=== PATIENT | female | born 1950 | race African-American/Black ===

== ENCOUNTER 2017-09-12 03:18 | Emergency (ER) | payer MEDICARE, MEDICAID ==
[2017-09-12 03:54] LABS: #Lymphocytes 0.9 thou/uL (1.20-3.40); #Monocytes 0.6 thou/uL (0.11-0.59); #Neutrophils 7.3 thou/uL (1.40-6.50); %Basophils 0.2 % (0.0-1.0); %Eosinophils 0.1 % (0.0-10.0); %Lymphocytes 10.2 % (21.0-51.0); %Neutrophils 82.6 % (42.0-75.0); Hemoglobin 11.9 g/dL (12.0-16.0); Mean Corpuscular Hemoglobin 31.1 pg (27.0-31.0); Mean Corpuscular Volume 91.4 fl (81.0-99.0); Mean Platelet Volume 7.4 fL (7.4-10.4); Platelet Count 261 thou/uL (130-400); RBC Distribution Width 12.7 % (11.5-14.5); Red Blood Cell (RBC) Count 3.83 mill/uL (4.20-5.40); White Blood Cell (WBC) Count 8.9 thou/uL (4.8-10.8)
[2017-09-12 04:16] LABS: ALT (SGPT) 17 U/L (8-55); AST (SGOT) 16 U/L (5-34); Albumin 4.3 g/dL (3.4-4.8); Alkaline Phosphatase 115 U/L (40-150); Anion Gap 14 mmol/L (10-20); BUN (Urea Nitrogen) 11 mg/dL (9.8-20.1); Bilirubin, Total 0.5 mg/dL (0.2-1.2); Calc. Creatinine Clearance 0 mL/min (70-130); Calcium 9.3 mg/dL (7.8-10.44); Carbon Dioxide 24 mmol/L (23-31); Chloride 102 mmol/L (98-107); Estimated GFR-MDRD 82; Globulin 3.2 g/dL (2.4-3.5); Glucose 159 mg/dL (80-115); Lipase 6 U/L (8-78); Potassium 3.5 mmol/L (3.5-5.1); Protein, Total 7.5 g/dL (6.0-8.3); Sodium 136 mmol/L (136-145)
--- NOTE | 2017-09-12 09:15 | RAD ---
CHEST 1 VIEW AND ABDOMEN 2 VIEWS: Date: 09/12/17 HISTORY: Abdominal pain. FINDINGS/IMPRESSION: The heart size is normal. The lungs are expanded without focal areas of consolidation, pneumothorax, or pleural effusions. There are degenerative changes in the spine. No free air or differential fluid levels are identified. The bowel gas pattern is unremarkable. There is fecal material in the colon. POS: [facility]
== END 2017-09-12 07:25 | disposition home or self-care (01) ==
LOC: ERS 03:18
DX: K59.00 Constipation, unspecified (principal); R10.9 Unspecified abdominal pain; E11.9 Type 2 diabetes mellitus without complications; E03.9 Hypothyroidism, unspecified; E78.5 Hyperlipidemia, unspecified; I10 Essential (primary) hypertension; F32.9 Major depressive disorder, single episode, unspecified; F20.9 Schizophrenia, unspecified; G47.00 Insomnia, unspecified; Z79.84 Long term (current) use of oral hypoglycemic drugs; Z79.899 Other long term (current) drug therapy
CPT/HCPCS: 36415; 74022; 80053; 82150; 83690; 85025

== ENCOUNTER 2017-09-13 06:42 | Inpatient (IN) | payer MEDICARE, MEDICAID ==
[2017-09-13] MEDS ORDERED: Iopamidol 370 76% 50 ML VIAL FS ONE (07:35)
[2017-09-13] MEDS ORDERED: ISOVUE-370 76%-LOCM 1 ML ONE (07:35)
[2017-09-13] MEDS ORDERED: Ondansetron PF 4 MG/2 ML Vial ONE (07:37)
[2017-09-13 08:06] LABS: Hemoglobin 12.3 g/dL (12.0-16.0); Mean Corpuscular HGB CONC 33.6 g/dL (32.0-36.0); Mean Corpuscular Hemoglobin 30.9 pg (27.0-31.0); Mean Corpuscular Volume 92.1 fl (81.0-99.0); Mean Platelet Volume 7.8 fL (7.4-10.4); Platelet Count 231 thou/uL (130-400); RBC Distribution Width 12.8 % (11.5-14.5); Red Blood Cell (RBC) Count 3.98 mill/uL (4.20-5.40); White Blood Cell (WBC) Count 14.9 thou/uL (4.8-10.8)
[2017-09-13 08:12] LABS: ALT (SGPT) 26 U/L (8-55); AST (SGOT) 20 U/L (5-34); Alkaline Phosphatase 111 U/L (40-150); Anion Gap 15 mmol/L (10-20); BUN (Urea Nitrogen) 16 mg/dL (9.8-20.1); Bilirubin, Total 0.8 mg/dL (0.2-1.2); Calc. Creatinine Clearance 0 mL/min (70-130); Calcium 9.3 mg/dL (7.8-10.44); Carbon Dioxide 23 mmol/L (23-31); Chloride 99 mmol/L (98-107); Estimated GFR-MDRD 55; Globulin 3.1 g/dL (2.4-3.5); Glucose 143 mg/dL (80-115); Lipase Less than 4 U/L (8-78); Potassium 3.7 mmol/L (3.5-5.1); Protein, Total 7.1 g/dL (6.0-8.3); Sodium 133 mmol/L (136-145)
[2017-09-13 08:32] LABS: Band 15 % (5-11); Lymphocytes 9 % (21-51); MDiff Complete? YES; Monocytes 7 % (0-10); Neutrophil 69 % (42-75); PLT Morphology Comment Appears Adequate; RBC Morphology Normal
--- NOTE | 2017-09-13 10:20 | CT ---
CT OF ABDOMEN AND PELVIS: Date: 09/13/17 COMPARISON: 04/17/15. HISTORY: Abdominal pain with diffuse cramping. TECHNIQUE: Serial axial CT imaging obtained at 5 mm intervals from lung bases through pubic symphysis with IV an d oral contrast. Coronal reformatted imaging obtained. FINDINGS: The imaged lung bases are unremarkable. No free intraperitoneal air is noted. There is small volume nonspecific free fluid in the perihepatic region. The liver, gallbladder, and spleen appear grossly unremarkable. Adrenal glands are mildly thickening in a symmetric fashion bilaterally, unchanged since 2014. Both k idneys demonstrate a pelvic location and may demonstrate a thin connection along their superior luis n, stable. There is small volume free fluid in the right lower quadrant inferiorly. There is no evidence for bowel obstruction. There is significant inflammatory fat stranding in the right lower quadrant inferior to and posterior to the cecum. The epicenter of this area of inflammatory change is surrounding an inflamed, thick-wa lled, and irregular appendix, which contains multiple appendicoliths. The mid and distal aspect of th e appendix measures up to 1.2 cm in transverse dimension. On axial image 69 and coronal image 58, the re is a focus of gas near the tip of the appendix which may be extraluminal in the basis of microperf oration. There is no evidence for a drainable abscess at this point. There is a small hiatal hernia. There is atherosclerotic calcification of the infrarenal abdominal aorta and the arterial structures of the pelvis. No lymphadenopathy identified within the retroperitoneum, mesentery, or pelvis. There is a fat-containing umbilical hernia. No acute osseous abnormality is noted. There is multilevel dege nerative change within the imaged spine, primarily the lower lumbar spine. IMPRESSION: Thick-walled and irregular appendix containing numerous appendicoliths. There is also prominent right lower quadrant inflammatory change. Findings are concerning for acute appendicitis. Focus of gas yamile r the tip of the appendix and the degree of right lower quadrant inflammatory change is suspicious fo r early changes of appendiceal perforation. There is no evidence for bowel obstruction or abscess. Sm all volume free fluid noted in the pelvis, right lower quadrant, and right perihepatic region. Dr. Burns made aware at 0915 hours on 09/13/17. CODE CR. POS: [facility]
[2017-09-13] MEDS ORDERED: Piperacillin/Tazobactam 3.375 GM in Sodium Chloride 0.9% 100 ML IVPB SCH (10:30)
[2017-09-13] MEDS ORDERED: Dextrose 5% in Water 1,000 ML IV PRN (11:24)
[2017-09-13] MEDS ORDERED: Lorazepam 2 MG/ML VIAL SLOW IVP PRN (11:24)
[2017-09-13] MEDS ORDERED: hydrALAZINE 20 MG/ML VIAL SLOW IVP PRN (11:24)
[2017-09-13] MEDS ORDERED: Morphine 4 MG/ML Carpuject IVP PRN (11:24)
[2017-09-13] MEDS ORDERED: Dextrose 50% Abboject 50 ML SYRINGE SLOW IVP PRN (11:24)
[2017-09-13] MEDS ORDERED: Ondansetron ODT 4 MG TAB PO PRN (11:24)
[2017-09-13] MEDS ORDERED: Insulin Regular 300 UNITS/3 ML VIAL SC PRN (11:24)
[2017-09-13] MEDS ORDERED: Ondansetron PF 4 MG/2 ML Vial IVP PRN (11:24)
[2017-09-13] MEDS ORDERED: HumaLOG 300 UNITS/3 ML VIAL SC PRN (11:24)
[2017-09-13] MEDS ORDERED: Ketorolac Tromethamine 30 MG/ML VIAL IVP PRN (11:29)
[2017-09-13] MEDS ORDERED: traMADol HCl 50 MG TAB PO PRN (11:29)
[2017-09-13] MEDS ORDERED: Ibuprofen 600 MG TAB PO PRN (11:30)
[2017-09-13] MEDS ORDERED: Fioricet 325/50/40 mg Tablet PO PRN (11:31)
[2017-09-13] MEDS ORDERED: CALAMINE TOP PRN (11:31)
[2017-09-13] MEDS ORDERED: PRAMOXINE HCL TOP PRN (11:31)
--- NOTE | 2017-09-13 11:55 | HP ---
HISTORY OF PRESENT ILLNESS: Alyssa Norris is a 67-year-old black female who presented in the [facility] room on 09/12/2017, seen by Dr. Tom, evaluated with abdominal x-ray series demonstrating wha t patient reports is constipation. Personal review reveals that there are some stool, but not abunda nt. Her pain worsened, she reported back to the emergency room. CAT scan of abdomen and pelvis reve als changes consistent with appendicitis with inflammatory changes. She has numerous appendicolith. She had arteriosclerosis of the infrarenal abdominal aorta and arterial structure of the pelvis and bony degenerative changes otherwise. The patient had a left PICC line placed in 2014 and a nuclear c ardiac stress test in 03/2015, EF 52% and normal myocardial perfusion without ischemia. In 03/2015, Dr. Moore performed laparoscopic hand-assisted adhesiolysis for bowel obstruction. ALLERGIES: None. TOBACCO: None. ALCOHOL: None. MEDICATIONS: Lorazepam 2 mg as needed, naproxen 500 mg daily, metformin 500 mg a day, Latuda 80 mg a day, Linzess 145 mcg 72 mcg once a day a.m., dorzolamide ophthalmic drops, valacyclovir 500 mg a day , levothyroxine 100 mcg a day, amlodipine 10 mg a day, simvastatin 20 mg a day, bupropion 150 mg a da y, Travatan eyedrops daily, vitamins daily. PAST SURGICAL HISTORY: Total abdominal hysterectomy. Dr. Moore performed adhesiolysis hand-assist ed laparoscopic 2014. PAST MEDICAL HISTORY: Diabetes mellitus type 2, obesity, hypertension, and elevated cholesterol. SOCIAL HISTORY: The patient lives alone. She is . She lives in [place]. She does not have an y family support. Her family lives in [place] and the family is not getting along and she has nobody t o take her home today. PHYSICAL EXAMINATION: VITAL SIGNS: 99 kilograms, 130/74, 85, 18, 98.4 degrees. HEENT: Unremarkable. LUNGS: Clear to auscultation. CARDIAC: Regular rate and rhythm without murmur or gallop. ABDOMEN: Soft, tenderness in right lower quadrant with guarding and rebound. EXTREMITIES: Unremarkable. Ankle edema. No axillary, neck or groin lymphadenopathy. NEUROLOGIC: Neurologically intact. No focal deficits. LABORATORY DATA: Sodium 133, potassium 3.7, creatinine 1.2, GFR 55, BUN 16. Liver function tests no rmal. White count 14, hemoglobin 12. ASSESSMENT AND PLAN: 1. Acute appendicitis. Recommend laparoscopic video appendectomy. Risk of infection, bleeding, and re-operation explained, she consents. 2. Diabetes mellitus. 3. Hypertension. 4. Elevated cholesterol.
[2017-09-13] MEDS ORDERED: Ondansetron HCl/PF 4 MG/2 ML Vial IVP PRN (12:00)
[2017-09-13] MEDS ORDERED: Promethazine HCl 25 MG/ML VIAL SLOW IVP PRN (12:00)
[2017-09-13] MEDS ORDERED: Promethazine HCl 25 MG/ML VIAL IM PRN (12:00)
[2017-09-13] MEDS ORDERED: Lorazepam 1 MG TAB PO PRN ×2 (12:06→22:15)
--- NOTE | 2017-09-13 12:58 | OP ---
DATE OF PROCEDURE: 09/13/2017 PREOPERATIVE DIAGNOSES: Ruptured appendicitis and purulent peritonitis. POSTOPERATIVE DIAGNOSES: Ruptured appendicitis and purulent peritonitis. PROCEDURES: Laparoscopic video appendectomy, abdominal washout, #19 Gold FESTUS drain, laparoscopic vide o appendectomy. Appendix removed in an Endobag and submitted to pathology. FINDINGS: Advanced appendicitis with purulent fluid in the pelvis in the right gutter. SURGEON: Dr. Hieu Raymundo ANESTHESIA: General. Local 0.5% Marcaine with epinephrine, 30 mL. DESCRIPTION OF PROCEDURE: Patient taken to the operating room where under general anesthesia, Gil catheter was placed at the beginning of the procedure and removed at the end. Abdomen was prepared w ith ChloraPrep and draped in routine fashion. Local anesthetic infiltrated into skin and subcutaneou s tissue about each port site. Infraumbilical incision made and pneumoperitoneum to 15 mmHg obtained with the Veress needle, replacing it with a 5 port and video laparoscope inserted. Right subcostal incision made and a 5 port placed. There was purulent peritonitis in the right gutter and pelvis. T here were inflammatory purulent adhesions between the lower viscera and the abdominal wall, this was taken down with blunt dissection and suprapubic incision made and a 12 port placed. Appendix was dis sected free from its purulent attachments and mesenteric attachments. Mesentery divided with the Lig aSure. Stump of the appendix was carefully dissected free to the cecal stump which dividing the blue load CARLOS stapler. Appendix placed in Endobag and removed and submitted to pathology. Area irrigate d. Irrigant evacuated. Good hemostasis noted. Suprapubic fascia approximated with 0 Vicryl GraNee needle. Approximately 3 liters of saline solution used to irrigate the pelvis in the right gutter, a bdominal cavity. Irrigant evacuated. A #19 Gold FESTUS drain brought out placed into the abdominal cavi ty extending the right subcostal port site and drain placed in the right gutter into the pelvis. Abd ominal cavity irrigated and irrigant evacuated. Suprapubic fascia approximated with 0 Vicryl. All s kin incisions approximated with interrupted subdermal 4-0 Monocryl and drain secured with 3-0 nylon s uture. Sterile dressings applied.
[2017-09-13] MEDS: Sodium Chloride 0.9% 1,000 ML IV SCH ×2 (13:30→20:28)
[2017-09-13 14:42] VITALS: BMI 36.6
[2017-09-13] MEDS ORDERED: PROPOFOL 200 MG/20 ML VIAL ONE (15:52)
[2017-09-13] MEDS ORDERED: Succinylcholine Chloride 20 MG/ML 10 ml SYRINGE FS ONE (15:52)
[2017-09-13] MEDS ORDERED: Lidocaine 1% PF 5 ML VIAL ONE (15:52)
[2017-09-13] MEDS ORDERED: Glycopyrrolate 0.2 MG/ML 5 ML SYRINGE ONE (15:52)
[2017-09-13] MEDS ORDERED: FLU VACC TS2017-18 (>65YR) 0.5 ML SYRINGE IM ONE (17:00)
[2017-09-13] MEDS: Gabapentin 300 MG CAP PO SCH ×2 (17:51→20:26)
[2017-09-13] MEDS: Piperacillin/Tazobactam 4.5 GM in Sodium Chloride 0.9% 100 ML IVPB SCH ×2 (17:51→23:55)
[2017-09-13] MEDS ORDERED: Prevnar 13-Val Conj/PF 0.5 ML SYRINGE IM ONE (18:30)
[2017-09-13] MEDS: Latanoprost 0.005% Ophth Soln 2.5 ml Bottle EA EYE SCH (20:25)
[2017-09-13] MEDS: Simvastatin 20 MG TAB PO SCH (20:26)
[2017-09-13] MEDS: Enoxaparin Sodium 40 MG/0.4 ML SYRINGE SC SCH (20:28)
[2017-09-13] MEDS: Famotidine 20 MG TAB PO SCH (20:29)
[2017-09-13] MEDS: Famotidine/PF 20 mg/2ml Vial SLOW IVP SCH (20:29)
[2017-09-13] MEDS ORDERED: Triamcinolone 0.1% Dental Paste 5 GM TUBE TOP SCH (21:00)
[2017-09-13] MEDS ORDERED: Polyethylene Glycol 3350 17 GM Packet PO SCH (21:00)
[2017-09-13] MEDS ORDERED: ZIPRASIDONE HCL PO SCH (21:00)
[2017-09-13] MEDS ORDERED: Doxepin HCl 25 MG CAP PO SCH (21:00)
[2017-09-13] MEDS ORDERED: POLYETHYLENE GLYCOL 17 GM PO SCH (21:00)
[2017-09-13] MEDS ORDERED: TOPIRAMATE 200 MG PO SCH (21:00)
[2017-09-13] MEDS ORDERED: levETIRAcetam 500 mg/5 ml Oral Solution PO SCH (21:00)
[2017-09-13] MEDS ORDERED: traZODone HCl 50 MG TAB PO PRN (21:00)
[2017-09-13] MEDS ORDERED: SUMAtriptan Succinate 50 MG TAB PO PRN (23:16)
[2017-09-14] MEDS: traZODone HCl 50 MG TAB PO PRN ×2 (00:01→20:15)
[2017-09-14] MEDS: Acetaminophen 500 MG TAB PO PRN ×2 (00:01→20:43)
[2017-09-14] MEDS: Sodium Chloride 0.9% 1,000 ML IV SCH ×2 (02:11→14:50)
[2017-09-14] MEDS: Levothyroxine Sodium 100 MCG TAB PO SCH (05:09)
[2017-09-14] MEDS: Piperacillin/Tazobactam 4.5 GM in Sodium Chloride 0.9% 100 ML IVPB SCH ×3 (05:09→18:13)
[2017-09-14 05:53] LABS: #Lymphocytes 0.9 thou/uL (1.20-3.40); #Monocytes 0.5 thou/uL (0.11-0.59); #Neutrophils 7.1 thou/uL (1.40-6.50); %Basophils 0.1 % (0.0-1.0); %Eosinophils 0.1 % (0.0-10.0); %Lymphocytes 10.8 % (21.0-51.0); %Monocytes 6.1 % (0.0-10.0); %Neutrophils 82.7 % (42.0-75.0); Hemoglobin 10.7 g/dL (12.0-16.0); Mean Corpuscular HGB CONC 32.7 g/dL (32.0-36.0); Mean Corpuscular Hemoglobin 30.3 pg (27.0-31.0); Mean Corpuscular Volume 92.6 fl (81.0-99.0); Mean Platelet Volume 7.7 fL (7.4-10.4); Platelet Count 198 thou/uL (130-400); RBC Distribution Width 12.8 % (11.5-14.5); Red Blood Cell (RBC) Count 3.52 mill/uL (4.20-5.40); White Blood Cell (WBC) Count 8.6 thou/uL (4.8-10.8)
[2017-09-14 06:05] LABS: Anion Gap 10 mmol/L (10-20); BUN (Urea Nitrogen) 14 mg/dL (9.8-20.1); Calc. Creatinine Clearance 120 mL/min (70-130); Calcium 8.2 mg/dL (7.8-10.44); Carbon Dioxide 22 mmol/L (23-31); Chloride 106 mmol/L (98-107); Estimated GFR-MDRD 78; Glucose 170 mg/dL (80-115); Potassium 3.2 mmol/L (3.5-5.1); Sodium 135 mmol/L (136-145)
[2017-09-14] MEDS ORDERED: LINACLOTIDE (LINZESS) 145 MCG PO SCH (07:30)
[2017-09-14] MEDS: metFORMIN 500 MG TAB PO SCH (08:13)
[2017-09-14] MEDS: valACYclovir 500 MG TAB PO SCH (08:13)
[2017-09-14] MEDS: Bupropion 150 MG XL TAB PO SCH (08:13)
[2017-09-14] MEDS: Fish Oil 1,000 MG CAP PO SCH (08:13)
[2017-09-14] MEDS: Ferrous Sulfate 325 MG TAB PO SCH (08:13)
[2017-09-14] MEDS: Naproxen 500 MG TAB PO SCH (08:14)
[2017-09-14] MEDS: Loratadine 10 MG TAB PO SCH (08:14)
[2017-09-14] MEDS: Amlodipine 10 MG TAB PO SCH (08:14)
[2017-09-14] MEDS: Multivit, Therapeutic 1 TAB PO SCH (08:14)
[2017-09-14] MEDS: traMADol HCl 50 MG TAB PO PRN ×2 (08:15→15:59)
[2017-09-14] MEDS: Lurasidone HCl 40 MG TABLET PO SCH (08:22)
[2017-09-14] MEDS: Famotidine 20 MG TAB PO SCH ×2 (08:51→20:08)
[2017-09-14] MEDS: DorzolamidE/Timolol 2%/0.5% Ophth Soln 10 ml Bottle EA EYE SCH (08:51)
[2017-09-14] MEDS ORDERED: Polyethylene Glycol 3350 17 GM Packet PO SCH (09:00)
[2017-09-14] MEDS ORDERED: Fluticasone Propionate Nasal Spray 16 gm Bottle NASAL PRN (09:00)
[2017-09-14] MEDS: Famotidine/PF 20 mg/2ml Vial SLOW IVP SCH (09:21)
--- NOTE | 2017-09-14 18:30 | PRG ---
DATE OF SERVICE: 09/14/2017 SUBJECTIVE: Alyssa Norris is doing well, one day status post laparoscopic appendectomy, abdominal wash out for ruptured appendicitis with peritonitis. Drain was in place and draining slightly blood y serous fluid. OBJECTIVE: VITAL SIGNS: Temperature 98.2 degrees, heart rate 88, blood pressure 123/72. LUNGS: Clear to auscultation. CARDIAC: Regular rate and rhythm without murmur or gallop. ABDOMEN: Soft, obese, and nontender. LABORATORY DATA: This morning, her white count is 8.6, down to 14 yesterday. Basic metabolic profil e was normal. ASSESSMENT AND PLAN: Doing well. Expect to be able to send her home on oral antibiotics tomorrow an d remove her FESTUS drain prior to discharge. She will follow up in my office in 2-3 weeks. She will co ntinue on oral antibiotics as an outpatient for 5 days.
[2017-09-14] MEDS: Enoxaparin Sodium 40 MG/0.4 ML SYRINGE SC SCH (20:07)
[2017-09-14] MEDS: Simvastatin 20 MG TAB PO SCH (20:08)
[2017-09-14] MEDS: Latanoprost 0.005% Ophth Soln 2.5 ml Bottle EA EYE SCH (20:09)
[2017-09-14] MEDS: HYDROcodone/Acetaminophen 10/325 mg Tablet PO PRN (20:43)
[2017-09-15] MEDS: Piperacillin/Tazobactam 4.5 GM in Sodium Chloride 0.9% 100 ML IVPB SCH ×2 (00:20→05:12)
[2017-09-15] MEDS: Levothyroxine Sodium 100 MCG TAB PO SCH (05:13)
[2017-09-15] MEDS: Naproxen 500 MG TAB PO SCH (08:29)
[2017-09-15] MEDS: metFORMIN 500 MG TAB PO SCH (08:29)
[2017-09-15] MEDS: Ferrous Sulfate 325 MG TAB PO SCH (08:29)
[2017-09-15] MEDS ORDERED: Amoxicillin/Potassium Clav 500 MG TAB PO SCH (09:00)
--- NOTE | 2017-09-15 09:03 | PRG ---
DATE OF SERVICE: 09/15/2016 Alyssa Norris is doing well today. She is without fever. PHYSICAL EXAMINATION: VITAL SIGNS: Temperature 98 degrees, 81, 18, 127/79. She is tolerating her diet without nausea or v omiting. LUNGS: Clear to auscultation. CARDIAC: Regular rate and rhythm without murmur or gallop. ABDOMEN: Soft, nontender. LABORATORY: White count yesterday 8.6, hemoglobin 10.7. Basic metabolic profile normal. The patient has Vidor 10 at home. She is being discharged home with Augmentin 500 mg p.o. b.i.d. for 5 days. Drain will be removed, it is serosanguineous. LUNGS: Clear to auscultation. CARDIAC: Regular rhythm without murmur or gallop. ABDOMEN: Soft, nontender. She will take Tylenol and ibuprofen [id number] for pain. She has Vidor 10 at home she will use for breakthrough pain. She takes this for her arthritis.
[2017-09-15] MEDS: Amlodipine 10 MG TAB PO SCH (09:52)
[2017-09-15] MEDS: Bupropion 150 MG XL TAB PO SCH (09:53)
[2017-09-15] MEDS: Multivit, Therapeutic 1 TAB PO SCH (09:54)
[2017-09-15] MEDS: Fish Oil 1,000 MG CAP PO SCH (09:54)
[2017-09-15] MEDS: Lurasidone HCl 40 MG TABLET PO SCH (09:54)
[2017-09-15] MEDS: Loratadine 10 MG TAB PO SCH (09:55)
[2017-09-15] MEDS: valACYclovir 500 MG TAB PO SCH (09:56)
[2017-09-15] MEDS: HYDROcodone/Acetaminophen 10/325 mg Tablet PO PRN (10:11)
[2017-09-15] MEDS: DorzolamidE/Timolol 2%/0.5% Ophth Soln 10 ml Bottle EA EYE SCH (10:39)
--- NOTE | 2017-09-15 10:53 | DIS ---
DATE OF ADMISSION: 09/13/2017 DATE OF DISCHARGE: 09/15/2017 DISCHARGE DIAGNOSES: 1. Perforated appendicitis with peritonitis. 2. Obesity. 3. Chronic pain, on [place] at home for that. 4. Morbid obesity. 5. Diabetes mellitus type 2. 6. Metabolic syndrome. 7. Hypertension. 8. Anxiety. DISCHARGE MEDICATIONS: She will resume her home medications. See admission list and sent home with Augmentin 500 b.i.d. for 5 days, [id number] ibuprofen and Tylenol for breakthrough pain. She h as [place] at home. FOLLOWUP: Follow up in my office in 2-3 weeks. HISTORY: A 67-year-old morbidly obese female who presents to the emergency room with right lower charissa drant abdominal pain, evaluated by Dr. Tom. Plain x-rays suggested constipation. She was sent ho me with instructions to take laxatives. The next day, her pain worsened, she presented back to the e mergency room. CAT scan verified appendicitis. She received intravenous antibiotics and fluids, und erwent laparoscopic video appendectomy, abdominal washout of purulent peritonitis and a drain placeme nt. Postoperatively, she convalesced and tolerated her diet and is being discharged home with the ab ove regimen. Diet and activity as tolerated. No restrictions. Follow up in my office in [facility] 2-3 weeks.
[2017-09-15 13:00] VITALS: BP 142/92; TEMP 97.6
--- NOTE | 2017-09-19 14:24 | EKG ---
Test Reason : Blood Pressure : / mmHG Vent. Rate : 097 BPM Atrial Rate : 097 BPM P-R Int : 178 ms QRS Dur : 074 ms QT Int : 354 ms P-R-T Axes : 072 054 067 degrees QTc Int : 449 ms Normal sinus rhythm Possible Left atrial enlargement Borderline ECG Confirmed by SRIDHAR SANDOVAL ([id number]), medical editor KELLY DE LA ROSA ([id number]) on 09/19/2017 2:24:30 PM Referred By: Confirmed By:SRIDHAR SANDOVAL
== END 2017-09-15 14:10 | disposition home or self-care (01) | DRG 340 ==
LOC: ERS 06:42 → SURG A 07:25 → ERS 07:25 → SURG A 13:39
PROVIDERS: ADMIT Specialist; ATTEND Specialist
PROC: 0DTJ4ZZ Resection of Appendix, Percutaneous Endoscopic Approach (ICD-10-PCS; principal; 2017-09-13)
DX: K35.2 Acute appendicitis with generalized peritonitis (principal); E66.01 Morbid (severe) obesity due to excess calories; E88.81 Metabolic syndrome and other insulin resistance; E11.9 Type 2 diabetes mellitus without complications; I10 Essential (primary) hypertension; E78.00 Pure hypercholesterolemia, unspecified; Z68.36 Body mass index [BMI] 36.0-36.9, adult; G89.29 Other chronic pain; F41.9 Anxiety disorder, unspecified; Z79.899 Other long term (current) drug therapy
CPT/HCPCS: 36415; 36416; 74022; 74177; 80048; 80053; 82150; 83690; 85025; 88304; 93005; 96361; 96372; 96374; 99284; J1650; J1815; J2001; J2060; J2270; J2405; J2543; J2704; J7050

== ENCOUNTER 2017-10-28 08:50 | Outpatient (CLI) | payer MEDICARE, MEDICAID ==
[~2017-10-28 08:50] MED LIST: Gadobenate Dimeglumine 529 MG/1 ML (20ML VIAL) ONE
--- NOTE | 2017-10-28 11:30 | MRI ---
MRI BRAIN WITH AND WITHOUT CONTRAST: Date: 10/28/17 HISTORY: Follow-up meningioma. Headache. No surgery. [place] [facility]CHNIQUE: Brain MRI is performed with and without intravenous Gadolinium administration. Multisequential, multi planar imaging is performed. FINDINGS: No hemorrhage on the axial gradient echo sequence. No parenchymal mass, mass effect, or midline shift . Brain volume is age-appropriate. Cortical ye-white matter differentiation is preserved. Ventricles and sulci are patent and symmetric. Central arterial flow-voids are maintained. Absent restricted diffusion. No significant T2 or FLAIR white matter hyperintensities. Mild mucosal disease of the paranasal sinuses. Partial opacification of right mastoid air cells. Cortical ye-white matter differentiation is preserved. Ventricles and sulci are patent and symmetric. Central arterial flow-voids are maintained. Absent restricted diffusion. No pathologic enhancement of the brain parenchyma. There is mild, nonspecific pachymeningeal enhancement. Along the right temporal convexity, there is a n extra-axial enhancing mass measuring 1.0 cm anterior posterior x 1.0 cm craniocaudal x 0.7 cm medio lateral. Small meningioma is favored. No significant mass effect. No significant vasogenic edema. IMPRESSION: Extra-axial mass in the right temporal convexity compatible with a meningioma. No significant interva l change. POS: [facility]
== END 2017-10-28 08:51 | disposition home or self-care (01) ==
LOC: TBSIIMAG 08:50
PROVIDERS: ATTEND Surgery
DX: D33.2 Benign neoplasm of brain, unspecified (principal); G93.89 Other specified disorders of brain
CPT/HCPCS: 70553; 82565; A9579

== ENCOUNTER 2017-12-23 08:46 | Outpatient (CLI) | payer MEDICARE, MEDICAID | END 2017-12-23 08:47 | disposition home or self-care (01) | LOC: BICMAMMO 08:46 | PROVIDERS: ATTEND Family Medicine | DX: Z12.31 Encounter for screening mammogram for malignant neoplasm of breast (principal); R92.1 Mammographic calcification found on diagnostic imaging of breast | CPT/HCPCS: 77063; 77067 ==

== ENCOUNTER 2018-04-16 14:08 | Emergency (ER) | payer MEDICARE, MEDICAID ==
[2018-04-16] MEDS ORDERED: Meclizine HCl 25 MG TAB ONE (14:33)
[2018-04-16 15:13] LABS: #Eosinphils 0.1 thou/uL (0.0-0.7); #Lymphocytes 1.7 thou/uL (1.20-3.40); #Monocytes 0.4 thou/uL (0.11-0.59); #Neutrophils 2.3 thou/uL (1.40-6.50); %Eosinophils 1.9 % (0.0-10.0); %Lymphocytes 37.7 % (21.0-51.0); %Monocytes 7.9 % (0.0-10.0); %Neutrophils 51.5 % (42.0-75.0); Hemoglobin 11.9 g/dL (12.0-16.0); Mean Corpuscular HGB CONC 32.8 g/dL (32.0-36.0); Mean Corpuscular Hemoglobin 30.7 pg (27.0-31.0); Mean Corpuscular Volume 93.4 fL (78.0-98.0); Platelet Count 291 thou/uL (130-400); RBC Distribution Width 12.1 % (11.5-14.5); Red Blood Cell (RBC) Count 3.87 mill/uL (4.20-5.40); White Blood Cell (WBC) Count 4.4 thou/uL (4.8-10.8)
[2018-04-16 15:34] LABS: ALT (SGPT) 11 U/L (8-55); AST (SGOT) 11 U/L (5-34); Albumin 3.8 g/dL (3.4-4.8); Alkaline Phosphatase 104 U/L (40-150); Anion Gap 11 mmol/L (10-20); BUN (Urea Nitrogen) 12 mg/dL (9.8-20.1); Bilirubin, Total 0.2 mg/dL (0.2-1.2); Calc. Creatinine Clearance 0 mL/min (70-130); Calcium 8.6 mg/dL (7.8-10.44); Carbon Dioxide 21 mmol/L (23-31); Chloride 108 mmol/L (98-107); Estimated GFR-MDRD 88; Globulin 2.8 g/dL (2.4-3.5); Glucose 88 mg/dL (80-115); Potassium 3.8 mmol/L (3.5-5.1); Protein, Total 6.6 g/dL (6.0-8.3); Sodium 136 mmol/L (136-145)
[2018-04-16 15:37] LABS: CKMB 0.9 ng/mL (0-6.6); Troponin I Less than 0.010 ng/mL (< 0.028)
[2018-04-16 16:47] LABS: Bilirubin Negative (Negative); Blood, Urine Negative (Negative); Clarity CLEAR (Clear); Glucose, Urine (Dipstick) Negative (Negative); Leukocyte Negative (Negative); Nitrite Negative (Negative); Protein, Urine (Dipstick) Negative (Neg-Trace); Specific Gravity, Urine 1.008 (1.002-1.036)
== END 2018-04-16 16:25 | disposition home or self-care (01) ==
LOC: ERS 14:08
DX: R42 Dizziness and giddiness (principal); T42.0X5A Adverse effect of hydantoin derivatives, initial encounter; E11.9 Type 2 diabetes mellitus without complications; E03.9 Hypothyroidism, unspecified; E78.5 Hyperlipidemia, unspecified; I10 Essential (primary) hypertension; Z79.899 Other long term (current) drug therapy
CPT/HCPCS: 36415; 80053; 80185; 81003; 82553; 84484; 85025; 93005

== ENCOUNTER 2018-08-24 11:52 | Emergency (ER) | payer MEDICARE, MEDICAID ==
[2018-08-24 12:57] LABS: #Lymphocytes 1.1 thou/uL (1.20-3.40); #Monocytes 0.3 thou/uL (0.11-0.59); #Neutrophils 1.9 thou/uL (1.40-6.50); %Basophils 1.4 % (0.0-1.0); %Eosinophils 0.5 % (0.0-10.0); %Lymphocytes 32.1 % (21.0-51.0); %Monocytes 8.7 % (0.0-10.0); %Neutrophils 57.4 % (42.0-75.0); Hemoglobin 11.4 g/dL (12.0-16.0); Mean Corpuscular HGB CONC 33.3 g/dL (32.0-36.0); Mean Corpuscular Volume 93.1 fL (78.0-98.0); Mean Platelet Volume 6.8 fL (7.4-10.4); Platelet Count 272 thou/uL (130-400); RBC Distribution Width 12.6 % (11.5-14.5); Red Blood Cell (RBC) Count 3.66 mill/uL (4.20-5.40); White Blood Cell (WBC) Count 3.4 thou/uL (4.8-10.8)
[2018-08-24 13:19] LABS: ALT (SGPT) 10 U/L (8-55); AST (SGOT) 12 U/L (5-34); Acetaminophen Less than 6.0 mcg/mL (10.0-30.0); Albumin 4.2 g/dL (3.4-4.8); Alcohol Less than 10 mg/dL (Less than 10); Alkaline Phosphatase 94 U/L (40-150); Anion Gap 14 mmol/L (10-20); BUN (Urea Nitrogen) 14 mg/dL (9.8-20.1); Bilirubin, Total 0.4 mg/dL (0.2-1.2); Calc. Creatinine Clearance 0 mL/min (70-130); Calcium 9.1 mg/dL (7.8-10.44); Carbon Dioxide 23 mmol/L (23-31); Chloride 106 mmol/L (98-107); Estimated GFR-MDRD 86; Globulin 2.7 g/dL (2.4-3.5); Glucose 102 mg/dL (80-115); Potassium 3.8 mmol/L (3.5-5.1); Protein, Total 6.9 g/dL (6.0-8.3); Salicylate Less than 8.0 mg/dL (15.0-30.0); Sodium 139 mmol/L (136-145)
[2018-08-24 13:24] LABS: Bilirubin Negative (Negative); Blood, Urine Negative (Negative); Clarity CLEAR (Clear); Glucose, Urine (Dipstick) Negative (Negative); Leukocyte Negative (Negative); Nitrite Negative (Negative); Protein, Urine (Dipstick) Negative (Neg-Trace); Specific Gravity, Urine 1.018 (1.002-1.036)
[2018-08-24 13:33] LABS: Amphetamine Not Detected (NotDetected); Benzodiazepine Screen Detected (NotDetected); Cocaine Metabolite Screen Not Detected (NotDetected); Medtox Reader # READER 1; Methamphetamine Not Detected (NotDetected); Opiate Screen Detected (NotDetected); Phencyclidine (PCP) Not Detected (NotDetected); THC/Cannabinoid Screen Not Detected (NotDetected); Tricyclic Screen Not Detected (NotDetected)
[2018-08-24 13:34] LABS: Barbiturates Screen Detected (NotDetected); Medtox Control Line Valid? VALID (VALID); Methadone Not Detected (NotDetected); Oxycodone Screen Not Detected (NotDetected)
--- NOTE | 2018-08-24 13:36 | CT ---
CT BRAIN WITHOUT IV CONTRAST: HISTORY: Altered mental status. COMPARISON: 04/02/2013 FINDINGS: No focal mass or midline shift. No intraaxial or extraaxial hemorrhage. The sinuses and mastoids ar e clear. Stable appearance from prior study of 04/02/2013. IMPRESSION: No acute intracranial process. No mass or bleed. POS: [facility]
--- NOTE | 2018-08-28 16:00 | EKG ---
Test Reason : Blood Pressure : / mmHG Vent. Rate : 059 BPM Atrial Rate : 059 BPM P-R Int : 212 ms QRS Dur : 080 ms QT Int : 418 ms P-R-T Axes : 000 173 137 degrees QTc Int : 413 ms Sinus bradycardia with 1st degree A-V block Right axis deviation Abnormal ECG Confirmed by VIOLET PACE ([id number]), story editor JENNIFER GOETZ ([id number]) on 08/28/2018 3:59:51 PM Referred By: Confirmed By:VIOLET PACE
== END 2018-08-24 14:22 | disposition home or self-care (01) ==
LOC: ERS 11:52
DX: R41.82 Altered mental status, unspecified (principal); E11.9 Type 2 diabetes mellitus without complications; E03.9 Hypothyroidism, unspecified; E78.5 Hyperlipidemia, unspecified; I10 Essential (primary) hypertension; F32.9 Major depressive disorder, single episode, unspecified; Z79.899 Other long term (current) drug therapy; Z79.84 Long term (current) use of oral hypoglycemic drugs
CPT/HCPCS: 36415; 70450; 80053; 80306; 80307; 81003; 84484; 85025; 93005

== ENCOUNTER 2018-12-27 08:56 | Outpatient (CLI) | payer MEDICARE, MEDICAID ==
--- NOTE | 2018-12-27 09:31 | MMO ---
Bilateral MAMMO Bilat Screen DDI+PADMA. CLINICAL HISTORY: Patient is 68 years old and is seen for screening. The patient has no family history of breast cancer. The patient has no personal history of cancer. VIEWS: The views performed were: bilateral craniocaudal with tomosynthesis and bilateral mediolateral oblique with tomosynthesis. FILMS COMPARED: The present examination has been compared to prior imaging studies performed at [facility] on 12/12/2014, 12/14/2015, 12/16/2016 and 12/23/2017. MAMMOGRAM FINDINGS: There are scattered fibroglandular densities. There are stable benign appearing calcifications seen in both breasts. There are no suspicious masses, suspicious calcifications, or new areas of architectural distortion. IMPRESSION: THERE IS NO MAMMOGRAPHIC EVIDENCE OF MALIGNANCY. A ROUTINE FOLLOW-UP MAMMOGRAM IN 1 YEAR IS RECOMMENDED. THE RESULTS OF THIS EXAM WERE SENT TO THE PATIENT. ACR BI-RADS Category 2 - Benign finding MAMMOGRAPHY NOTE: 1. A negative mammogram report should not delay a biopsy if a dominant of clinically suspicious mass is present. 2. Approximately 10% to 15% of breast cancers are not detected by mammography. 3. Adenosis and dense breasts may obscure an underlying neoplasm.
== END 2018-12-27 08:57 | disposition home or self-care (01) ==
LOC: BICMAMMO 08:56
PROVIDERS: ATTEND Family Medicine
DX: Z12.31 Encounter for screening mammogram for malignant neoplasm of breast (principal)
CPT/HCPCS: 77063; 77067

== ENCOUNTER 2019-01-04 10:46 | Emergency (ER) | payer MEDICARE, MEDICAID ==
[2019-01-04] MEDS ORDERED: Ketorolac Tromethamine 30 MG/ML VIAL ONE (12:12)
--- NOTE | 2019-01-04 13:58 | RAD ---
RIGHT HIP RADIOGRAPHS TWO VIEWS: 01/04/19 PROVIDED CLINICAL HISTORY: Worsening chronic right hip pain. FINDINGS: No evidence for fracture or other acute osseous abnormality. If there is persistent clinical concern, conservative management and follow-up imaging are advised. IMPRESSION: As above. POS: [facility]
--- NOTE | 2019-01-04 14:00 | RAD ---
PELVIC RADIOGRAPHS: 01/04/19 PROVIDED CLINICAL HISTORY: Worsening chronic right hip pain. FINDINGS: Lower lumbar spine degenerative changes are seen. There is no evidence for fracture or other acute os seous abnormality. The joint spaces appear preserved. Alignment appears anatomic. IMPRESSION: No evidence for an acute osseous abnormality. If there is persistent clinical concern, conservative management and follow-up imaging are advised. POS: [facility]
== END 2019-01-04 12:57 | disposition home or self-care (01) ==
LOC: ERS 10:46
DX: M25.551 Pain in right hip (principal); G89.29 Other chronic pain; E11.9 Type 2 diabetes mellitus without complications; E03.9 Hypothyroidism, unspecified; E78.5 Hyperlipidemia, unspecified; G43.909 Migraine, unspecified, not intractable, without status migrainosus; I10 Essential (primary) hypertension; F32.9 Major depressive disorder, single episode, unspecified; G47.00 Insomnia, unspecified; Z79.84 Long term (current) use of oral hypoglycemic drugs; Z79.899 Other long term (current) drug therapy
CPT/HCPCS: 72170; 96372; J1885

== ENCOUNTER 2019-04-29 08:31 | Emergency (ER) | payer MEDICARE, MEDICAID | END 2019-04-29 09:03 | disposition home or self-care (01) | LOC: ERS 08:31 | DX: J32.9 Chronic sinusitis, unspecified (principal); R04.0 Epistaxis; E11.9 Type 2 diabetes mellitus without complications; E03.9 Hypothyroidism, unspecified; E78.5 Hyperlipidemia, unspecified; F32.9 Major depressive disorder, single episode, unspecified; G47.00 Insomnia, unspecified; I10 Essential (primary) hypertension; M19.90 Unspecified osteoarthritis, unspecified site; G43.909 Migraine, unspecified, not intractable, without status migrainosus; Z79.899 Other long term (current) drug therapy; Z79.84 Long term (current) use of oral hypoglycemic drugs; Z79.891 Long term (current) use of opiate analgesic | CPT/HCPCS: 99283 ==

== ENCOUNTER 2019-06-16 04:32 | Emergency (ER) | payer MEDICARE, MEDICAID ==
[2019-06-16] MEDS ORDERED: Ketorolac Tromethamine 60 MG/2 ML VIAL ONE (04:40)
== END 2019-06-16 05:03 | disposition home or self-care (01) ==
LOC: ERS 04:32
DX: G89.29 Other chronic pain (principal); M25.511 Pain in right shoulder; M19.90 Unspecified osteoarthritis, unspecified site; E11.9 Type 2 diabetes mellitus without complications; E03.9 Hypothyroidism, unspecified; E78.5 Hyperlipidemia, unspecified; G43.909 Migraine, unspecified, not intractable, without status migrainosus; I10 Essential (primary) hypertension; F32.9 Major depressive disorder, single episode, unspecified; G47.00 Insomnia, unspecified; Z79.899 Other long term (current) drug therapy; Z79.2 Long term (current) use of antibiotics; Z79.84 Long term (current) use of oral hypoglycemic drugs
CPT/HCPCS: 96372; 99283; J1885

== ENCOUNTER 2019-12-29 09:10 | Outpatient (CLI) | payer MEDICARE, MEDICAID ==
--- NOTE | 2019-12-29 11:24 | MMO ---
Bilateral MAMMO Bilat Screen DDI+PADMA. CLINICAL HISTORY: Patient is 69 years old and is seen for screening. The patient has no family history of breast cancer. The patient has no personal history of cancer. VIEWS: The views performed were: bilateral craniocaudal with tomosynthesis and bilateral mediolateral oblique with tomosynthesis. FILMS COMPARED: The present examination has been compared to prior imaging studies performed at [facility] on 12/14/2015, 12/16/2016, 12/23/2017 and 12/27/2018. This study has been interpreted with the assistance of computer-aided detection. MAMMOGRAM FINDINGS: There are scattered fibroglandular densities. There are stable benign appearing calcifications seen in both breasts. There are no suspicious masses, suspicious calcifications, or new areas of architectural distortion. IMPRESSION: THERE IS NO MAMMOGRAPHIC EVIDENCE OF MALIGNANCY. A ROUTINE FOLLOW-UP MAMMOGRAM IN 1 YEAR IS RECOMMENDED. THE RESULTS OF THIS EXAM WERE SENT TO THE PATIENT. ACR BI-RADS Category 2 - Benign finding MAMMOGRAPHY NOTE: 1. A negative mammogram report should not delay a biopsy if a dominant of clinically suspicious mass is present. 2. Approximately 10% to 15% of breast cancers are not detected by mammography. 3. Adenosis and dense breasts may obscure an underlying neoplasm. Reported by: MATT BARBER MD Electonically Signed: [id number]
== END 2019-12-29 09:11 | disposition home or self-care (01) ==
LOC: BICMAMMO 09:10
PROVIDERS: ATTEND Family Medicine
DX: Z12.31 Encounter for screening mammogram for malignant neoplasm of breast (principal)
CPT/HCPCS: 77063; 77067

== ENCOUNTER 2020-01-06 11:51 | Emergency (ER) | payer MEDICARE, MEDICAID ==
--- NOTE | 2020-01-06 13:08 | RAD ---
XR Lumbar Spine 2 Or 3 View History: Pain. 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 Moderate left and mild right SI joint degenerative change. There is advanced degenerative disc space height loss at L3/L4 and L4/L5. No acute fracture or malali gnment of the lumbar spine. Moderate facet arthrosis lower lumbar spine. The sacral struts are intact. Impression: Chronic findings. No acute fracture or malalignment.
--- NOTE | 2020-01-06 13:11 | RAD ---
RIGHT HIP: 01/06/20 Two views. INDICATIONS: Falling. COMPARISON: 01/04/29 FINDINGS: Femoral head contour is normal. Minimal degenerative change at the hip. No fracture or acute abnormal ity. IMPRESSION: No acute findings. POS: [facility]
--- NOTE | 2020-01-06 13:12 | RAD ---
LEFT HIP: 01/06/20 Two views. HISTORY: Fall with injury. Femoral head contour is normal. No evidence of fracture. No osseous abnormality identified. IMPRESSION: No acute findings. POS: [facility]
== END 2020-01-06 13:53 | disposition home or self-care (01) ==
LOC: ERS 11:51
DX: M54.5 Low back pain (principal); M25.552 Pain in left hip; M25.551 Pain in right hip; M19.90 Unspecified osteoarthritis, unspecified site; E11.9 Type 2 diabetes mellitus without complications; E78.5 Hyperlipidemia, unspecified; E03.9 Hypothyroidism, unspecified; I10 Essential (primary) hypertension; G43.909 Migraine, unspecified, not intractable, without status migrainosus; F32.9 Major depressive disorder, single episode, unspecified; G47.00 Insomnia, unspecified; W19.XXXA Unspecified fall, initial encounter; Y92.009 Unspecified place in unspecified non-institutional (private) residence as the place of occurrence of the external cause
CPT/HCPCS: 72100

== ENCOUNTER 2020-01-18 10:48 | Outpatient (CLI) | payer MEDICARE, MEDICAID ==
--- NOTE | 2020-01-18 11:26 | RAD ---
PA AND LATERAL CHEST: Date: 01/18/2020 INDICATION: History or pruritus. COMPARISON: None. FINDINGS: Lungs are clear. Heart size normal appearing. No acute osseous abnormality evident. IMPRESSION: No acute cardiopulmonary abnormality. POS: [facility]
== END 2020-01-18 10:49 | disposition home or self-care (01) ==
LOC: BICRAD 10:48
PROVIDERS: ATTEND Internal Medicine Infectious Disease
DX: L29.9 Pruritus, unspecified (principal)
CPT/HCPCS: 36415; 71046; 72148; 80053; 81001; 84439; 84443; 85025

== ENCOUNTER 2020-05-17 10:32 | Outpatient (CLI) | payer MEDICARE, MEDICAID ==
--- NOTE | 2020-05-17 12:04 | MRI ---
MR CERVICAL SPINE WITHOUT CONTRAST INDICATION: 69-year-old female with cervical disc disease with right arm numbness and right leg numbn ess TECHNIQUE: Multiplanar multisequence MR images were obtained of the cervical spine without contrast. COMPARISON: None FINDINGS: Posterior fossa: Within normal limits. Bone marrow signal intensity: Normal Spinal alignment: Normal. Craniocervical junction: There is a 6 mm periarticular ganglion seen along the anterior margin of the left C1-C2 articular facet joint. Prevertebral and perivertebral soft tissues: Visualized soft tissues appear within normal limits. Vertebral levels: C2-C3: There is mild facet joint degenerative change and a small central disc protrusion but no appre ciable central canal or neural foraminal narrowing. C3-4: There is a broad-based disc bulge with a superimposed central disc protrusion causing moderate narrowing of the central canal with mild ventral effacement spinal cord. There is mild bilateral neural foraminal narrowing due to uncovertebral hypertrophy. C4-5: There is a broad-based disc osteophyte complex inducing moderate central canal narrowing with mild to moderate ventral effacement of spinal cord. There is uncovertebral hypertrophy facet joint degenerative change inducing severe right and moderate to severe left neural foraminal narrowing C5-C6: There is a broad-based disc bulge with uncovertebral hypertrophy facet joint degenerative kyle ge inducing moderate central canal narrowing with mild ventral effacement spinal cord. There is moderate to severe right and moderate left neural foraminal narrowing. C6-C7:, There is a broad-based disc bulge causing [id number] central canal narrowing with mild ventral contact of the spinal cord. There is uncovertebral hypertrophy, greater on the right, inducing mild right neural foraminal narrowing. C7-T1: There is a broad-based disc bulge with superimposed central protrusion inducing moderate narro wing of the spinal canal with ventral contact of the spinal cord. There is a broad-based disc bulge as well with facet hypertrophy inducing mild/moderate bilateral neural foraminal narrowing. IMPRESSION: 1. Moderate to severe cervical spondylosis with multilevel central canal narrowing and neural foramin al narrowing as detailed above.
--- NOTE | 2020-05-17 12:45 | RAD ---
EXAM: XR Cerv Sp Ap Lat STANDARD DATE: 05/17/2020 12:02 PM INDICATION: History of fall with neck pain COMPARISON: MR of the cervical spine dated May 17, 2020 FINDING: The spinal alignment appears within normal limits. No acute fracture is demonstrated. There is advanced disc degenerative disease at C4-5, C5-6 and C6-7. There is moderate facet joint degenerative change at C6-7. There is mild multilevel facet joint degenerative change at the remainin g intervertebral levels. Prevertebral soft tissues are normal appearing. Lung apices are clear. IMPRESSION:Moderate to severe cervical spondylosis. No acute fracture or subluxation.
== END 2020-05-17 10:33 | disposition home or self-care (01) ==
LOC: BICMRI 10:32
PROVIDERS: ATTEND Family Medicine
DX: G89.4 Chronic pain syndrome (principal); M79.18 Myalgia, other site; M50.10 Cervical disc disorder with radiculopathy, unspecified cervical region; M47.22 Other spondylosis with radiculopathy, cervical region; M48.02 Spinal stenosis, cervical region
CPT/HCPCS: 72040; 72141

== ENCOUNTER 2020-10-24 08:38 | Outpatient (CLI) | payer OTHER, MEDICAID | END 2020-10-24 08:39 | disposition home or self-care (01) | LOC: BICMAMMO 08:38 | PROVIDERS: ATTEND Family Medicine | DX: Z13.820 Encounter for screening for osteoporosis (principal); M85.851 Other specified disorders of bone density and structure, right thigh; M85.852 Other specified disorders of bone density and structure, left thigh | CPT/HCPCS: 77080 ==

== ENCOUNTER 2020-11-26 07:50 | Outpatient (CLI) | payer MEDICARE, MEDICAID | END 2020-11-26 07:51 | disposition home or self-care (01) | LOC: BICULT 07:50 | PROVIDERS: ATTEND Family Medicine | DX: E04.2 Nontoxic multinodular goiter (principal) | CPT/HCPCS: 76536 ==

== ENCOUNTER 2021-04-25 07:56 | Outpatient (CLI) | payer MEDICARE, MEDICAID | END 2021-04-25 07:57 | disposition home or self-care (01) | LOC: BICMAMMO 07:56 | PROVIDERS: ATTEND Family Medicine | DX: Z12.31 Encounter for screening mammogram for malignant neoplasm of breast (principal) | CPT/HCPCS: 77063; 77067 ==

== ENCOUNTER 2021-07-24 09:04 | Outpatient (CLI) | payer MEDICARE, MEDICAID | END 2021-07-24 09:05 | disposition home or self-care (01) | LOC: TBSIIMAG 09:04 | PROVIDERS: ATTEND Surgery | DX: D32.0 Benign neoplasm of cerebral meninges (principal); R51.9 Headache, unspecified; I67.82 Cerebral ischemia | CPT/HCPCS: 70553 ==

== ENCOUNTER 2022-01-01 08:45 | Outpatient (CLI) | payer OTHER, MEDICAID | END 2022-01-01 08:46 | disposition home or self-care (01) | LOC: BICULT 08:45 | PROVIDERS: ATTEND Family Medicine | DX: E04.2 Nontoxic multinodular goiter (principal) | CPT/HCPCS: 76536 ==